=== PATIENT | male | born 1985 | race African-American/Black ===

== ENCOUNTER 2018-08-30 17:40 | Emergency (ER) | payer SELFPAY ==
[~2018-08-30] VITALS: Ht 182.9 cm; Wt 79.1 kg
[2018-08-30 17:45] VITALS: BP 139/76; TEMP 98.5
[2018-08-30] MEDS ORDERED: FLEXERIL 1010 MG/TAB PO (18:14)
[2018-08-30 18:20] VITALS: PULSE 70
== END 2018-08-30 18:22 | disposition home or self-care (01) ==
LOC: COL.ER 17:40
DX: M62.830 Muscle spasm of back (principal); F17.210 Nicotine dependence, cigarettes, uncomplicated; X50.3XXA Overexertion from repetitive movements, initial encounter